=== PATIENT | female | born 1970 | race Caucasian/White ===

== ENCOUNTER 2017-11-21 07:42 | Emergency (ER) | payer SELFPAY ==
[~2017-11-21] VITALS: Ht 162.6 cm; Wt 64.0 kg
[2017-11-21 12:12] VITALS: BP 135/86
== END 2017-11-21 12:13 | disposition home or self-care (01) ==
LOC: ER 07:45
DX: S92.421A Displaced fracture of distal phalanx of right great toe, initial encounter for closed fracture (principal); M54.5 Low back pain; M25.521 Pain in right elbow; E11.9 Type 2 diabetes mellitus without complications; I10 Essential (primary) hypertension; V09.9XXA Pedestrian injured in unspecified transport accident, initial encounter; Y93.89 Activity, other specified; Y92.89 Other specified places as the place of occurrence of the external cause; Y99.8 Other external cause status
CPT/HCPCS: 72100; 73080; 73630; 99284; Z7610